=== PATIENT | female | born 2005 | race Two or more races ===

== ENCOUNTER → 2024-07-30 | Outpatient (CLI) | payer OTHER, SELFPAY ==
--- NOTE | 2024-07-30 10:52 | XR_ITS ---
Examination: Shoulder,right, 3 views Technique: Shoulder AP internal rotation, AP external rotation, Y view shoulder, 3 views Exam date and time :July 30, 2024 1105 hours INDICATIONS: Patient fell 2 weeks ago with injury to the right shoulder, right shoulder pain. FINDINGS: No shoulder fracture or dislocation No AC joint separation IMPRESSION: No shoulder fracture or dislocation
== END | disposition home or self-care (01) ==
LOC: COPL 11:25 → CDIM 08-20 08:48
PROVIDERS: Referring Provider Hospitalist; Visit Provider Hospitalist
DX: S49.91XA Unspecified injury of right shoulder and upper arm, initial encounter (principal); W19.XXXA Unspecified fall, initial encounter
CPT/HCPCS: 73030